=== PATIENT | male | born 1955 | race Caucasian/White ===

== ENCOUNTER 2018-04-27 18:23 | Emergency (ER) | payer OTHER ==
[2018-04-27 19:18] VITALS: BP 147/79
--- NOTE | 2018-04-27 19:39 | UC ---
Skin Complaint HPI - HPI Summary HPI Summary: C/O possible infection from abrasion right arm at work. 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 Negative: Nausea, Numbness, Weakness, Red Streaks Related History: Trauma - Allergy/Home Medications Allergies/Adverse Reactions: Allergies Allergy/AdvReac Type Severity Reaction Status Date / Time Penicillins Allergy Swelling Verified 04/27/18 19:18 Home Medications: Home Medications NK [No Home Medications Reported] 04/27/18 [History Confirmed 04/27/18] PMH/Surg Hx/FS Hx/Imm Hx Cancer History: Prostate Cancer - Surgical History Surgical History: None - Family History Known Family History: Negative: Cardiac Disease, Hypertension, Diabetes - Social History Occupation: Employed Full-time Lives: With Family Alcohol Use: None Substance Use Type: None Smoking Status (MU): Never Smoked Tobacco Review of Systems All Other Systems Reviewed And Are Negative: Yes Skin: Positive: Bruising - right arm Is Patient Immunocompromised?: No Physical Exam Triage Information Reviewed: Yes Appearance: Well-Appearing, No Pain Distress, Well-Nourished Vital Signs: Initial Vital Signs Temp 97.9 F 04/27/18 19:14 Pulse 63 04/27/18 19:14 Resp 16 04/27/18 19:14 BP 147/79 04/27/18 19:14 Pulse Ox 100 04/27/18 19:14 Vital Signs Reviewed: Yes Eyes: Positive: Conjunctiva Clear Neck exam: Normal Respiratory Exam: Normal Cardiovascular Exam: Normal Musculoskeletal Exam: Normal Neurological Exam: Normal Psychological Exam: Normal Skin: Positive: Other - 3x1 cm abrasion dorsal right elbow Images Front/Back of Body, Lg ([place]): 1 - 3x1 cm abrasion with good healing/ granulation tissue Course/Dx - Differential Diagnoses - Skin Complaint Differential Diagnoses: Abscess, Cellulitis, Impetigo - Diagnoses Provider Diagnosis: Abrasion of right arm Discharge - Sign-Out/Discharge Documenting (check all that apply): Patient Departure All imaging exams completed and their final reports reviewed: No Studies - Discharge Plan Condition: Stable Disposition: HOME Patient Education Materials: Abrasion (ED) Referrals: Taj Muñoz MD [Primary Care Provider] - Additional Instructions: Healing looks good with no sign of infection. Great job keeping it moist with antibiotic ointment. Continue using the antibiotic ointment twice a day until it is healed. The green/ yellow discharge is the normal serous drainage that would normally make a scab. - Billing Disposition and Condition Condition: STABLE Disposition: Home
== END 2018-04-27 19:52 | disposition home or self-care (01) ==
LOC: UCCORT 18:23
DX: S40.811A Abrasion of right upper arm, initial encounter (principal); Z88.0 Allergy status to penicillin; W01.0XXA Fall on same level from slipping, tripping and stumbling without subsequent striking against object, initial encounter; Y92.89 Other specified places as the place of occurrence of the external cause
CPT/HCPCS: 99201; G0463